=== PATIENT | female | born 1990 | race Two or more races ===

== ENCOUNTER 2017-06-30 18:06 | Emergency (ER) | payer BC, OTHER ==
[~2017-06-30] VITALS: Ht 162.6 cm; Wt 77.3 kg
[2017-06-30 18:34] VITALS: Ht 162.6 cm; Wt 77.3 kg
[2017-06-30] MEDS ORDERED: ONDANSETRON (ODT) 4 MG TAB ODT STA (21:18)
--- NOTE | 2017-06-30 21:26 | ERD ---
ER Documentation Chief Complaint Chief Complaint n/v, diarrhea, low grade fever - feels like i had food poisoining - per pt HPI Otherwise healthy 26-year-old female presenting with a chief complaint of nausea and vomiting 24 hours beginning shortly after new days. Patient thinks that she had food poisoning. Patient states the bread bowl filled with beans, cheese, and vegetables. 5 bouts of vomiting. 4 loose stools that have resolved in the past 8 hours. Vomiting and diarrhea both described as watery. No foul odor. No sick contacts, however nobody had the same dish. Describes associated subjective fever. Denies anorexia, chills, abdominal pain, dysuria, shortness of breath, or inability to tolerate p.o. No medical conditions. Has not taken any medication to relieve the symptoms. Patient has no other complaints describes no other associated manifestations. ROS All systems reviewed and are negative except as per history of present illness. Allergies Allergies: Coded Allergies: No Known Allergy (Unverified , 06/30/17) Physical Exam Vitals Vital Signs Date Time Temp Pulse Resp B/P Pulse Ox O2 Delivery O2 Flow Rate FiO2 06/30/17 18:34 98.0 57 20 126/77 98 Physical Exam Const: Well-appearing 26-year-old female no acute distress Head: Atraumatic Eyes: Normal Conjunctiva ENT: Normal External Ears, Nose and Mouth. Moist mucous membranes. Neck: Full range of motion..~ No meningismus. Resp: Clear to auscultation bilaterally Cardio: Regular rate and rhythm, no murmurs. Radial pulses 2+ bilaterally. Cap refill less than 2 seconds. Abd: Soft, non tender, non distended. Normal bowel sounds. No McBurney's point tenderness. Skin: No petechiae or rashes Back: No midline or flank tenderness Ext: No cyanosis, or edema Neur: Awake and alert Psych: Normal Mood and Affect Results 24 hrs Current Medications Medications (Trade) Dose Ordered Sig/Mohit Route PRN Reason Start Time Stop Time Status Last Admin Dose Admin Ondansetron HCl (Zofran Odt) 4 mg ONCE STAT ODT 06/30/17 21:18 06/30/17 21:20 DC Procedures/MDM 26-year-old female presenting with a chief complaint of nausea and vomiting 24 hours. Vomiting described as watery. Patient states that she feels like she got food poisoning shortly after eating bread bowl filled with pains cheese and vegetables. Abdominal exam unremarkable. Patient was given Zofran in the ED. P.o. challenge was passed on the first attempt. Abdomen remained unremarkable upon reevaluation. I have suggested that the patient follow-up in 8 hours for reevaluation. I have no suspicion for appendicitis, diverticulitis, or other acute abdomen. Departure Diagnosis: Primary Impression: Nausea and vomiting Vomiting type: unspecified Vomiting Intractability: non-intractable Qualified Code: R11.2 - Non-intractable vomiting with nausea, unspecified vomiting type Condition: Stable Additional Instructions: Return in 8 hours for reevaluation. Return the the emergency department immediately if symptoms worsen or change. If you have any questions regarding medications, ask your pharmacist or us before you leave. If any adverse reactions occur while taking your medications, discontinue the treatment and return to the emergency department immediately. Take your medications as directed, and complete the entire course of treatment. SALO SHETTY PA-C Jun 30, 2017 21:26
[2017-06-30] MEDS ORDERED: ONDA4TAB14 PO (22:14)
[2017-06-30 22:21] VITALS: BP 125/77; PULSE 52; RESP 24; TEMP 97.9
[2017-07-12] MEDS ORDERED: IBUP-1542 PO (02:00)
[2017-07-12] MEDS ORDERED: OSLT75C PO (02:00)
[2017-07-12] MEDS ORDERED: DICY10CA60 PO (02:00)
[2017-07-12] MEDS ORDERED: ACET500C5 PO (02:00)
== END 2017-06-30 23:18 | disposition home or self-care (01) ==
LOC: FTE 18:06
DX: R11.2 Nausea with vomiting, unspecified (principal)
CPT/HCPCS: 99283

== ENCOUNTER 2017-07-12 01:12 | Emergency (ER) | END 2017-07-12 03:08 | disposition home or self-care (01) ==

== ENCOUNTER 2018-03-06 11:56 | Emergency (ER) | END 2018-03-06 14:36 | disposition home or self-care (01) ==